=== PATIENT | male | born 1960 | race African-American/Black ===

== ENCOUNTER 2020-01-03 13:59 | Emergency (ER) | payer MEDICAID, OTHER ==
[~2020-01-03] VITALS: Ht 177.8 cm; Wt 100.0 kg
[2020-01-03] MEDS ORDERED: KETOROLAC 60MG/2ML VIAL IM ONE (14:45)
[2020-01-03] MEDS ORDERED: DIAZEPAM 5 MG TABLET PO ONE (15:45)
[2020-01-03] MEDS ORDERED: ONDANSETRON 4MG ODT PO ONE (16:30)
[2020-01-03] MEDS ORDERED: MORPHINE SULFATE 10 MG/ML CPJ IM ONE (16:30)
[2020-01-03 17:27] VITALS: BP 132/78
== END 2020-01-03 17:26 | disposition home or self-care (01) ==
LOC: ER 14:20
DX: M54.5 Low back pain (principal); M62.830 Muscle spasm of back; J45.909 Unspecified asthma, uncomplicated
CPT/HCPCS: 96372; 99284; J1885; J2270; Q0162